=== PATIENT | female | born 1995 | race American Indian/Alaskan Native ===

== ENCOUNTER 2019-08-21 16:26 | Emergency (ER) | payer SELFPAY ==
[2019-08-21 16:49] VITALS: BP 118/66
--- NOTE | 2019-08-21 19:05 | Emergency Department Report ---
ED Abdominal Pain HPI - General Chief Complaint: Abdominal Pain Stated Complaint: PELVIC PAIN/ABD PAIN Time Seen by Provider: 08/21/19 18:40 Source: patient Mode of arrival: Ambulatory Limitations: No Limitations - History of Present Illness Initial Comments: This is a 23-year-old -[place] female who presents to the emergency room with pelvic pain for 2 weeks. Patient also reports vaginal discharge and nausea with associated symptoms. Last menstrual period July 13, 2019, 0. Reports pain is pressure to pelvic region that is intermittent. Denies urinary frequency, urgency, dysuria, hematuria, or vaginal bleeding. MD Complaint: abdominal pain Onset/Timin -: week(s) Location: suprapubic Radiation: none Migration to: no migration Severity: mild Severity scale (0 -10): 3 Quality: other (Pressure) Consistency: intermittent Improves With: nothing Worsens With: nothing Associated Symptoms: nausea. denies: vomiting, diarrhea, fever, dysuria, hematemesis, hematochezia, melena, hematuria, anorexia, syncope - Related Data LMP Date: 07/13/19 Allergies Allergy/AdvReac Type Severity Reaction Status Date / Time No Known Allergies Allergy Unverified 08/21/19 16:45 ED Review of Systems ROS: Stated complaint: PELVIC PAIN/ABD PAIN Other details as noted in HPI Constitutional: denies: chills, fever Respiratory: denies: cough, shortness of breath, wheezing Cardiovascular: denies: chest pain, palpitations Gastrointestinal: abdominal pain, nausea. denies: vomiting, diarrhea Genitourinary: denies: urgency, dysuria, discharge Skin: denies: rash, lesions Neurological: denies: headache, weakness, paresthesias Psychiatric: denies: anxiety, depression ED Past Medical Hx - Past Medical History Previous Medical History?: Yes Additional medical history: endometrosis - Surgical History Past Surgical History?: No - Social History Smoking Status: Never Smoker Substance Use Type: None ED Physical Exam - General Limitations: No Limitations General appearance: alert, in no apparent distress - Respiratory Respiratory exam: Present: normal lung sounds bilaterally. Absent: respiratory distress - Cardiovascular Cardiovascular Exam: Present: regular rate, normal rhythm. Absent: systolic murmur, diastolic murmur, rubs, gallop - GI/Abdominal GI/Abdominal exam: Present: soft, normal bowel sounds. Absent: distended, tenderness, guarding, rebound, rigid, organomegaly - External exam: Present: normal external exam Speculum exam: Present: vaginal discharge (Malodorous white). Absent: erythema, cervical discharge, vaginal bleeding, foreign body, tissue Bi-manual exam: Present: cervical motion tendernes. Absent: uterine enlargement - Extremities Exam Extremities exam: Present: normal inspection - Back Exam Back exam: Absent: CVA tenderness (R), CVA tenderness (L) - Neurological Exam Neurological exam: Present: alert, oriented X3 - Psychiatric Psychiatric exam: Present: normal affect, normal mood - Skin Skin exam: Present: warm, dry, intact, normal color. Absent: rash ED Course Vital Signs 08/21/19 16:45 Temperature 98.4 F Pulse Rate 60 Respiratory 18 Rate Blood Pressure 118/66 O2 Sat by Pulse 100 Oximetry ED Medical Decision Making - Lab Data Lab Results 08/21/19 Range/Units 19:03 Urine Color Yellow (Yellow) Urine Turbidity Slightly-cloudy (Clear) Urine pH 5.0 (5.0-7.0) Ur Specific [place] 1.029 (1.003-1.030) Urine Protein <15 mg/dl (Negative) mg/dL Urine Glucose (UA) Neg (Negative) mg/dL Urine Ketones Neg (Negative) mg/dL Urine Blood Neg (Negative) Urine Nitrite Neg (Negative) Urine Bilirubin Neg (Negative) Urine Urobilinogen < 2.0 (<2.0) mg/dL Ur Leukocyte Esterase Tr (Negative) Urine WBC (Auto) 1.0 (0.0-6.0) /HPF Urine RBC (Auto) 4.0 (0.0-6.0) /HPF U Epithel Cells (Auto) 17.0 H (0-13.0) /HPF Urine Bacteria (Auto) 1+ (Negative) /HPF Urine Mucus 3+ /HPF Urine HCG, Qual Negative (Negative) - Medical Decision Making This is a 23-year-old female who presents with pelvic pain and discharge for 2 weeks. Vitals are stable and patient in no acute distress. No significant past medical history. Work-up: Urinalysis, urine test, pelvic exam, gonorrhea chlamydia, and wet prep. Abdomen nontender on exam. Imaging deferred at this time. Urinalysis trace leukocyte Estrace and epithelial cells patient was possibly from a contaminated sample. Wet prep negative for yeast, trichomonas, clue cells. Gonorrhea chlamydia pending. Empirically treated with Rocephin and azithromycin to cover gonorrhea and chlamydia. Instructed to return for pending gonorrhea and chlamydia results. Follow-up outpatient with gynecology. Patient discharged home with strict return instructions. Critical care attestation.: If time is entered above; I have spent that time in minutes in the direct care of this critically ill patient, excluding procedure time. ED Disposition Clinical Impression: Vaginal discharge, Pelvic pain, STD exposure Disposition: TO HOME OR SELFCARE Is pt being admited?: No Condition: Stable Instructions: Abdominal Pain (ED) Referrals: [facility] [Provider Group] - 3-5 Days [facility] [Provider Group] - 3-5 Days [facility] [Provider Group] - 3-5 Days Time of Disposition: 20:39
[2019-08-21 19:59] LABS: Bacteria,Urine 1+ /HPF (Negative); Bilirubin,Urine NEG (Negative); Blood,Urine NEG (Negative); Color,Urine Yellow (Yellow); Mucus,Urine 3+ /HPF; Protein,Urine <15 mg/dL mg/dL (Negative); Urobilinogen,Urine < 2.0 mg/dL (<2.0)
[2019-08-21 20:01] LABS: HCG Qualitative,Urine Negative (Negative)
[2019-08-21] MEDS ORDERED: LIDOCAINE-MPF (1%) 10 MG/1 ML VIAL 5 ML INFILTRATI ONE (20:43)
[2019-08-21] MEDS ORDERED: AZITHROMYCIN 250 MG TAB PO ONE (20:43)
== END 2019-08-21 21:40 | disposition home or self-care (01) ==
LOC: ED 16:26
DX: R10.2 Pelvic and perineal pain (principal); N89.8 Other specified noninflammatory disorders of vagina; R11.0 Nausea; Z20.2 Contact with and (suspected) exposure to infections with a predominantly sexual mode of transmission
CPT/HCPCS: 81001; 81025; 87210; 87591; 96372; 99284; J0696